=== PATIENT | male | born 1945 | race Caucasian/White ===

== ENCOUNTER 2024-12-21 10:45 | Emergency (ER) | payer SELFPAY ==
[2024-12-21 10:58] VITALS: BP 163/77; PULSE 74; RESP 20; TEMP 36.9; O2SAT 95
--- NOTE | 2024-12-21 11:23 | ED.GENADUL_ITS ---
Discharge Plan Disposition Patient Disposition: Home Condition: Stable Discharge Details Clinical Impression: Diabetes mellitus Primary Care Provider: Unknown,Unknown ED Provider: Sheldon Martin Discharge Instructions Instructions: Blood Glucose Monitoring Additional Instructions: You were seen in the emergency department for your transient readings of hypoglycemia on your blood glucose monitor, we have given you oral carbohydrates and check your glucose, it is in line with your monitor I do not think your monitor is malfunctioning, please manage your blood sugars per your home plan, return for any emergent concerns. Discharge Data Discharge Date/Time-TO BE ENTERED AT DEPARTURE: 12/21/24 12:49 HPI General Date/Time Provider Initiated Documentation: 12/21/24 11:07 . HPI Narrative: 79 year-old male presents to ED today by POV/ambulating with a chief complaint of low blood sugar readings at home- at 80- then he stopped for some food- its reading 113 in triage. Quality described as mild nausea, just feels off, no radiation to slurred speech, fever, fast heart rate, heavy breathing, vomiting. Severity is described as mild. Palliating factors include nothing specific. Provoking factors include nothing specific. Patient not anticoagulated. Related Data Allergies Allergy/AdvReac Type Severity Reaction Status Date / Time Iodinated Contrast Media Allergy Severe Anaphylaxis Verified 12/21/24 11:06 General Stated Complaint: Diabetes ALEAH: 3 Review of Systems All systems reviewed & are unremarkable except as noted in HPI and below Exam Narrative Exam Narrative: GENERAL APPEARANCE: Well-nourished, non-toxic, awake and alert, atraumatic, no acute distress. SKIN: Warm, pink, dry, intact, without rashes/lesions/ulcerations. HEAD: Normocephalic, atraumatic, normal hair distribution for gender/age. EYES: Normal conjunctiva, no exudates on lids/lashes. ENT: Nares patent, no circumoral cyanosis, no facial swelling NECK: Supple, trachea midline, painless cervical ROM. LUNGS/CHEST: Lungs CTA bilaterally, non-labored respirations, normal A/P diameter, symmetrical expansion, no chest wall deformity HEART (CV/PV): Regular rate and rhythm without murmur, no peripheral edema, no JVD. ABDOMEN: Soft, non-distended, no guarding. MSK: Normal ROM, no swelling/deformity to bilateral UEs or LEs, moving all extremities without weakness, no cyanosis, spine midline without tenderness, normal curvature. NEURO: Mental Status AAOx4 - alert to person, place, time, events No facial droop, no forehead involvement. Motor: No focal weakness - strength 5/5 in bilateral UEs and LEs, proximal and distal, symmetric. Sensory: sensation intact to light touch globally. Gait normal: patient ambulated without ataxia into ED room. PSYCH: euthymic, cooperative, pleasant, appropriate speech Course Vital Signs Vital signs: Vital Signs Temperature 36.9 C 12/21/24 10:58 Pulse 74 12/21/24 10:58 Respiratory Rate 20 12/21/24 10:58 Blood Pressure 163/77 H 12/21/24 10:58 Pulse Oximetry 95 12/21/24 10:58 Temperature 36.9 C 12/21/24 10:58 Temperature Source Oral 12/21/24 10:58 Pulse 74 12/21/24 10:58 Respiratory Rate 20 12/21/24 10:58 Blood Pressure 163/77 H 12/21/24 10:58 Blood Pressure Position Sitting 12/21/24 10:58 Pulse Oximetry 95 12/21/24 10:58 Oxygen Delivery Method Room Air 12/21/24 10:58 Oxygen Flow Rate 0 12/21/24 10:58 Pain Level 0 12/21/24 10:58 Medical Decision Making This dictation utilizes [id number] dictation software and may contain unedited grammatical errors. 79 year-old male presents to ED today by POV/ambulating with a chief complaint of low blood sugar readings at home- at 80- then he stopped for some food- its reading 113 in triage. Patient had taken his normal amount of insulin this morning. Quality described as mild nausea, just feels off, no radiation to slurred speech, fever, fast heart rate, heavy breathing, vomiting. Severity is described as mild. Palliating factors include nothing specific. Provoking factors include nothing specific. Patients' medical history: Diabetes mellitus, history of alcohol use, hepatitis C, osteoarthritis. Family and social history: noncontributory. Pertinent exam findings / vital signs include benign physical exam, stable vitals, no acute distress, no altered mental status. Differential / pathologies of concern include transient hypoglycemia, glucose monitor malfunction. Diagnostic studies of: - CBC, BMP-glucose 128 consistent with patient's food intake do not suspect glucose monitor malfunction. Interventions of: - None. ED Course/Assessment/Plan: 79-year-old male was concern for mild hypoglycemic reading on his glucose monitor after taking his insulin this morning, encouraged him to eat food and we tested his blood glucose which is consistent with increasing glucose numbers and I recommend he continue monitoring per his own routine and regimen, strict return criteria for any hyper or hypoglycemia. Findings not consistent with dangerous hypoglycemia, DKA. Disposition of diabetes mellitus. Patient verbalized understanding of the plan and return to ED criteria and engaged in shared decision making. Medical Records Medical records reviewed: Yes I reviewed the patient's medical records. Lab Data Lab results reviewed: Yes I reviewed the patient's lab results. Labs: Laboratory Tests Range/Units 12/21/24 11:51 WBC (4.4-10.8) 10^3/uL 7.92 RBC (4.36-5.78) 10^6/uL 4.93 Hgb (13.5-17.5) g/dL 15.0 Hct (40.0-50.0) % 45.0 MCV (80-95) fL 91 MCH (27.0-33.0) pg 30.4 MCHC (32.0-36.0) % 33.3 RDW (11.8-14.1) % 13.2 Plt Count (130-400) 10^3/uL 260 MPV (8.0-11.0) fL 9.0 Immature Gran % % 0.4 Neutrophils % % 56.0 Band Neutrophils % % 0 Lymphocytes % % 19.0 Atypical Lymphs % % 16 Monocytes % % 6.0 Eosinophils % % 1.0 Basophils % % 2.0 Nucleated RBC % (0.0-0.3) % 0.0 Absolute Neutrophils (1.2-6.7) 10^3/uL 4.44 Absolute Lymphocytes (1.2-3.4) 10^3/uL 2.77 Absolute Monocytes (0.1-0.8) 10^3/uL 0.48 Absolute Eosinophils (0.0-0.7) 10^3/uL 0.08 Absolute Basophils (0.0-0.2) 10^3/uL 0.16 RBC Morphology Normal Sodium (136-145) mmol/L 141 Potassium (3.5-5.1) mmol/L 3.7 Chloride (98-107) mmol/L 102 Carbon Dioxide (21.0-32.0) mmol/L 26.3 Anion Gap (3-11) mmol/L 12.7 H BUN (7-18) mg/dL 16 Creatinine (0.70-1.30) mg/dL 1.0 Est GFR (CKD-EPI 2020) (mL/min/1.73m2) 77.52 Glucose (74-106) mg/dL 128 H Calcium (8.5-10.1) mg/dL 9.1 PFSH All Active Problems (Updated 12/21/24 @ 12:33 by CANDIDA Laguna) Diabetes mellitus (Chronic) Social History Smoking/Tobacco Use Status: Never Smoking risk assessment performed?: Yes Alcohol Intake: current Alcohol Intake frequency: 0-2 drinks per day Substance use type: does not use
[2024-12-21 11:43] VITALS: BP 163/77; PULSE 74; RESP 20; TEMP 36.9; O2SAT 95
[2024-12-21 12:00] LABS: Abs Immature Grans 0.03 10^3/uL (0.0-0.06); Immature Grans % 0.4 %; MCH 30.4 pg (27.0-33.0); MCHC 33.3 % (32.0-36.0); MCV 91 fL (80-95); Platelet Count 260 10^3/uL (130-400); RBC 4.93 10^6/uL (4.36-5.78); RDW 13.2 % (11.8-14.1); RDW-SD 44.3 fL; WBC 7.92 10^3/uL (4.4-10.8)
[2024-12-21 12:16] LABS: Anion Gap 12.7 mmol/L (3-11); BUN 16 mg/dL (7-18); CO2 26.3 mmol/L (21.0-32.0); Calcium 9.1 mg/dL (8.5-10.1); Chloride 102 mmol/L (98-107); Estimated GFR 77.52 (mL/min/1.73m2); Glucose 128 mg/dL (74-106); Potassium 3.7 mmol/L (3.5-5.1); Sodium 141 mmol/L (136-145)
[2024-12-21 12:38] LABS: Absolute Lymphocyte Count 2.77 10^3/uL (1.2-3.4); Absolute Monocyte Count 0.48 10^3/uL (0.1-0.8); Absolute Neutrophil Count 4.44 10^3/uL (1.2-6.7); Atypical Lymphocytes % 16 %; Bands % 0 %
[2024-12-21 12:39] LABS: Absolute Basophil Count 0.16 10^3/uL (0.0-0.2); Absolute Eosinophil Count 0.08 10^3/uL (0.0-0.7); Diff Comment Manual Differential; RBC Morphology Normal
== END 2024-12-21 12:49 | disposition home or self-care (01) ==
LOC: ER 12:57
PROVIDERS: Emergency Provider Physician Assistant
DX: E11.9 Type 2 diabetes mellitus without complications (principal)
CPT/HCPCS: 36415; 80048; 82962; 99283; 85025